=== PATIENT | male | born 1960 | race Caucasian/White ===

== ENCOUNTER 2019-04-14 17:29 | Emergency (ER) | payer MEDICARE, OTHER ==
[~2019-04-14] VITALS: Ht 180.3 cm; Wt 79.4 kg
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
[2019-04-14] MEDS ORDERED: IBUPROFEN 600 MG TABLET PO ONE ×2 (17:45→18:00)
[2019-04-14] MEDS ORDERED: HYDROCODONE/APAP 5/325MG 1 EACH TABLET ONE (17:45)
[2019-04-14] MEDS ORDERED: TDAP [DIPH/PERTUSSIS/TET] 0.5 ML VIAL IM ONE ×2 (17:47→18:00)
[2019-04-14] MEDS ORDERED: LIDOCAINE 0.5%-EPI 1:200,000 50 ML VIAL ONE (17:48)
[2019-04-14] MEDS ORDERED: LIDOCAINE 1%-EPI 1:100,000 20 ML VIAL TP ONE (18:00)
[2019-04-14] MEDS ORDERED: HYDROCODONE/APAP 5/325MG 1 EACH TABLET PO ONE (18:00)
--- NOTE | 2019-04-14 19:25 | NUR ---
Taken to CT via [facility] for CT chest
[2019-04-14] MEDS ORDERED: HYDROCODONE/APAP 10/325MG 1 EA TABLET PO ONE (19:30)
[2019-04-14] MEDS ORDERED: HYDROCODONE/APAP 10/325MG 1 EA TABLET ONE (19:30)
--- NOTE | 2019-04-14 19:38 | NUR ---
RETURNED FROM CT
--- NOTE | 2019-04-14 19:46 | NUR ---
PT WISHES TO GO TO [address], [address], [place]
--- NOTE | 2019-04-14 21:33 | NUR ---
Patient is ambulatory with a steady gait.
--- NOTE | 2019-04-14 21:35 | NUR ---
Patient discharged to home in stable condition. Written and verbal after care instructions given. Patient verbalizes understanding of instruction. Prescriptions given and explained. Patient verbalizes understanding of not taking medication with alcohol or operating behind any machinery while taking narcotics.
[2019-04-14 21:36] VITALS: BP 133/79
== END 2019-04-14 21:41 | disposition home or self-care (01) ==
LOC: ER 17:30
DX: S22.41XA Multiple fractures of ribs, right side, initial encounter for closed fracture (principal); S01.01XA Laceration without foreign body of scalp, initial encounter; S40.011A Contusion of right shoulder, initial encounter; F32.9 Major depressive disorder, single episode, unspecified; Z60.2 Problems related to living alone; V29.88XA Motorcycle rider (driver) (passenger) injured in other specified transport accidents, initial encounter; Y93.55 Activity, bike riding; Y92.89 Other specified places as the place of occurrence of the external cause; Y99.8 Other external cause status
CPT/HCPCS: 12001; 70450; 71045; 71250; 72125; 73030; 90471; 90715; 99285; A6403; J3490